=== PATIENT | female | born 1975 | race Caucasian/White ===

== ENCOUNTER → 2017-04-05 | Outpatient (CLI) | payer BC ==
--- NOTE | 2017-04-05 22:19 | DI ---
MRI LEFT ANKLE SCAN, 04/05/2017 10:44 AM: Clinical History: Left foot pain. Previous Exam: 02/01/2013. Technique: Axial, coronal, and sagittal PD and fat saturated PD. There is no soft tissue edema or abnormal muscle signal pattern. The talus and calcaneus both show ab normally increased signal intensity. In the neck of the calcaneus, there is a band of hypointensity i n this probably represents a healing stress fracture. There is edema diffusely through the neck and a long the inferolateral margin of the talus. A large joint effusion is present anteriorly and posterio rly with synovitis. There is mild thickening of the Achilles tendon proximal to the attachment to the calcaneus consistent with mild tendinosis. The medial cord of the plantar fascia is thickened consis tent with plantar fasciitis. The tibialis posterior tendon from a point proximal to the medial malleo mauricio and extending to the region of the spring ligament shows marked thickening with increased signal intensity centrally consistent with severe tendinosis. Fluid surrounds this tendon indicating tenosyn ovitis. There is tenosynovitis of the flexor digitorum longus and flexor hallucis longus tendons. Ten osynovitis is also present in the peroneus brevis and longus tendon sheaths. The extensor tendons are intact. Intermediate signal intensity is present in the cervical and interosseous talocalcaneal liga ments, the 3 components of the spring ligament, the deltoid ligament, and the anterior and posterior talofibular ligaments and the calcaneofibular ligament all consistent with chronic partial tears or s prains. Mild chronic tears or sprains are also evident in the anterior and posterior syndesmotic liga ments. The transverse tibiofibular ligament is intact. There is an apparent os trigonum without evide nce of edema. Readin. There is an apparent healing stress fracture through the neck of the calcaneus with bone edema in volving the talus. This should be correlated with either plain films of the ankle or preferably a CT scan of the ankle. 2. Large joint effusion with synovitis. There is severe tendinosis of the posterior tibial tendon wi th tenosynovitis involving the posterior tibial, flexor digitorum longus, and flexor hallucis longus tendons. Partial chronic tears involve the sprain, cervical, and interosseous talocalcaneal ligaments as well as the deltoid ligament, the anterior and posterior talofibular and syndesmotic ligaments. 3. Mild tendinosis of the Achilles tendon is noted. There is medial cord plantar fasciitis.
== END ==
LOC: MRI 10:39
PROVIDERS: ATTEND Podiatrist Foot & Ankle Surgery
DX: M79.672 Pain in left foot (principal); M84.375S Stress fracture, left foot, sequela; M25.475 Effusion, left foot; S93.692A Other sprain of left foot, initial encounter
CPT/HCPCS: 73721

== ENCOUNTER 2017-07-14 08:56 | Observation (INO) ==
[~2017-07-14 08:56] MED LIST: CefOXitin Inj 2 GM in Sodium Chloride 0.9% 100 ML IV ONE; LIDOCAINE W/ SODIUM BICARB 0.5 ML SYR ONE; LIDOCAINE W/ SODIUM BICARB 0.5 ML SYR SUBD ONE; Lactated Ringers 1,000 ML PRIMARY IV ONE; Sodium Chloride 0.9% 100 ML IV ONE
[2017-07-14 09:15] LABS: BILIRUBIN,URINE NEGATIVE (NEG); CLARITY,URINE CLEAR (CLEAR); COLOR,URINE YELLOW (Y); GLUCOSE, URINE (UA) NEGATIVE (NEG); NITRATE,URINE NEGATIVE (NEG); OCCULT BLOOD,URINE MODERATE (NEG); PH,URINE 6.5 (5.0-8.5); PROTEIN,URINE NEGATIVE (NEG); UROBILINOGEN,URINE 0.2 EU/dL (0.2)
[2017-07-14 09:17] LABS: URINE SPECIFIC GRAVITY - MAN 1.015
[2017-07-14 09:20] LABS: URINE SAMPLE TYPE CLEAN CATCH URINE
[2017-07-14 09:21] LABS: BACTERIA,URINE FEW; SQUAMOUS EPITHELIAL CELL,UR MANY
[2017-07-14 09:35] LABS: Hematocrit [HCT] 27.2 % (37.0-47.0); Hemoglobin [HGB] 8.1 g/dL (12.0-16.0)
[2017-07-14] MEDS ORDERED: SCOPOLAMINE HYDROBROMIDE 1.5 MG - 1 EACH PATCH TRANSDERM ONE (10:00)
[2017-07-14] MEDS ORDERED: ONDANSETRON 4 MG/2 ML VIAL ONE (10:01)
[2017-07-14] MEDS ORDERED: DEXAMETHASONE PF 10 MG/1 ML VIAL ONE (10:01)
[2017-07-14] MEDS ORDERED: Acetaminophen 1000mg Inj 1,000 MG/100 ML VIAL IV ONE (10:01)
[2017-07-14] MEDS: Lactated Ringers 1,000 ML PRIMARY IV SCH ×2 (10:21→18:57)
[2017-07-14] MEDS ORDERED: BUPIVACAINE 0.25% W/ EPI - 10 ML VIAL ONE (10:22)
[2017-07-14] MEDS ORDERED: LIDOCAINE HCL 2 % 10 ML JELLY URO-JECT TOPICAL ONE ×2 (10:22→11:43)
[2017-07-14] MEDS ORDERED: LIDOCAINE MPF 2% - 5 ML (20 MG/1 ML) ONE (10:35)
[2017-07-14] MEDS ORDERED: fentaNYL Inj 250 MCG/5 ML VIAL ONE (10:35)
[2017-07-14] MEDS ORDERED: PROPOFOL 10 MG/1 ML (200 MG/20 ML) VIAL IV ONE (10:35)
[2017-07-14] MEDS ORDERED: MIDAZOLAM 5 MG/1 ML ONE (10:35)
[2017-07-14] MEDS ORDERED: SUFENTANIL 50 MCG/1 ML ONE (10:36)
[2017-07-14] MEDS ORDERED: KETAMINE 100 MG/1 ML - 5 ML ONE (10:36)
[2017-07-14] MEDS ORDERED: Sodium Chloride 0.9% vial 10 ML ONE (10:37)
[2017-07-14] MEDS ORDERED: ROCURONIUM 10 MG/1 ML - 5 ML VIAL IVP ONE (10:56)
[2017-07-14] MEDS ORDERED: Opium-Belladonna 60-16.2mg 1 EACH SUPP.RECT RECTAL ONE ×3 (11:43→11:46)
[2017-07-14] MEDS ORDERED: Prochlorperazine Edisylate Inj 10mg/2ml vial IVP PRN (11:45)
[2017-07-14] MEDS ORDERED: NORMAL SALINE 10 ML SYRINGE FLUSH IVP PRN ×4 (11:45→15:29)
[2017-07-14] MEDS ORDERED: HYDROmorphone 2 MG/1 ML IVP PRN (11:45)
--- NOTE | 2017-07-14 11:45 | CRNA.PROGR ---
Anesthesia Time - - Start date: 07/14/17 End date: 07/14/17 - Procedure/Recovery Time Anesthesia : Time In: 10:50 Anesthesia : Time Out: 14:02 Anesthesia : Total Time: 192 - Total Anesthesia Time Total Anesthesia Time (minutes): 192 - Other Weight: 145.15 kg Height: 5 ft 4 in Body Mass Index (BMI): 54.9 Physical Status: P3 (morbid obesity) Anesthesia Type: General Anesthesia : ET
[2017-07-14] MEDS ORDERED: GLYCOPYRROLATE 0.2 MG/1 ML VIAL ONE (11:58)
[2017-07-14] MEDS ORDERED: Lactated Ringers 1,000 ML PRIMARY IV ONE (13:12)
[2017-07-14] MEDS ORDERED: NEOSTIGMINE 1 MG/1 ML - 10 ML ONE (13:14)
[2017-07-14] MEDS ORDERED: KETOROLAC 30 MG/1 ML VIAL ONE (13:18)
[2017-07-14] MEDS ORDERED: oxyCODONE/APAP 7.5/325 Tab 1 TAB TAB PO PRN ×2 (13:20→15:29)
[2017-07-14] MEDS ORDERED: KETOROLAC 15 MG/1 ML VIAL IVP PRN ×2 (13:20→15:29)
[2017-07-14] MEDS ORDERED: IBUPROFEN 800 MG TABLET PO PRN ×2 (13:20→15:29)
[2017-07-14] MEDS ORDERED: Ondansetron ODT Tab 8 MG TAB PO PRN ×2 (13:20→15:29)
[2017-07-14] MEDS ORDERED: LIDOCAINE HCL 2 % 10 ML JELLY URO-JECT TOPICAL PRN ×2 (13:20→15:29)
--- NOTE | 2017-07-14 13:27 | OB.OP.NOTE ---
Operative Report Surgeon: Harish Chief Business Development Officer: Maksim Avila MD Anesthesia Type: General Anesthesia Provider: Phillip Nick CRNA Surgery Date: 07/14/17 Preoperative Diagnosis: MMR/Fibroids Postoperative Diagnosis: Same Procedure: da Edwin Hysterectomy/Bilateral Salingpectomy/Cystoscopy Estimated Blood Loss (mL): 200 Fluids: 3700 ml Complications: None Findings at Surgery: Enlarged, multiply fibroid uterus. Tubes s/p BTL. Normal ovaries. No visible evidence of bowel, bladder or ureter injury. At cysto, the bladder was intact, and the ureters both ejected urine. Indications for the Procedure: MMR/Fibroids Description of Procedure: See dictated operative report. Plan: Routine post op care and discharge to home.
--- NOTE | 2017-07-14 14:00 | CRNA.PROGR ---
Anesthesia Recovery Phase I - Post Anesthesia Evaluation Patient's Condition on Arrival in Phase I: Stable Pain Level: 1
[2017-07-14] MEDS ORDERED: Sodium Chloride 0.9% 100 ML IV ONE (14:16)
[2017-07-14] MEDS ORDERED: CefOXitin Inj 1 GM in Sodium Chloride 0.9% 100 ML IV ONE (14:20)
[2017-07-14] MEDS: DOCUSATE 100 MG CAPSULE PO SCH (20:46)
[2017-07-14] MEDS: ENOXAPARIN SODIUM 40 MG/0.4 ML SYRINGE SUBCUT SCH (20:47)
[2017-07-14] MEDS ORDERED: DOCUSATE 100 MG CAPSULE PO SCH (21:00)
[2017-07-15 06:42] LABS: Hemoglobin [HGB] 7.1 g/dL (12.0-16.0); RED BLOOD COUNT 3.47 10^6/uL (4.20-5.40)
[2017-07-15 06:43] LABS: Hematocrit [HCT] 23.7 % (37.0-47.0); MEAN CORPUSCULAR HEMOGLOBIN 20.4 PG (27-31); MEAN CORPUSCULAR HGB CONC 29.9 g/dL (33-37); MEAN CORPUSCULAR VOLUME 68 FL (81-99); MEAN PLATELET VOLUME 8.3 FL (7.4-12.2); WBC MORPHOLOGY COMMENT NORMAL MORPHOLOGY (NORM)
[2017-07-15 06:44] LABS: BAND NEUTROPHILS % 2 % (0-10); BASOPHILS % (MANUAL) 1 % (0-1); EOSINOPHILS % (MANUAL) 0 % (0-8); MONOCYTES % (MANUAL) 4 % (0-12); NEUTROPHILS % (MANUAL) 90 % (50-80); PLATELET MORPHOLOGY COMMENT SEE COMMENTS (NORM); RBC MORPHOLOGY COMMENT NORMAL MORPHOLOGY (NORM)
[2017-07-15] MEDS: Lactated Ringers 1,000 ML PRIMARY IV SCH (06:44)
[2017-07-15] MEDS: ENOXAPARIN SODIUM 40 MG/0.4 ML SYRINGE SUBCUT SCH (08:31)
[2017-07-15] MEDS: DOCUSATE 100 MG CAPSULE PO SCH (08:31)
[2017-07-15 10:04] VITALS: BP 128/59; RESP 18; TEMP 98.1; O2SAT 95
--- NOTE | 2017-07-15 10:19 | DCSUMMARY ---
Hospitalization Summary Admit Date: 07/14/17 Discharge Date: 07/15/17 Primary Diagnosis:: MMR/Fibroids Secondary Diagnosis:: Anemia Hospital Course: The patient had a robotic hysterectomy without complication for an enlarged, fibroid uterus. She was observed overnight as her preop H/H were low. She remained stable with normal vital signs and her H/H the following morning was acceptable for discharge. She was discharged to home in good condition. F/u 2 weeks. Exam - Vitals Vital Signs: Vital Signs Temperature 98.1 F Temperature Source Oral Pulse Rate [Pulse Oximeter] 65 Pulse Rate 53 Respiratory Rate 18 Blood Pressure [Right Arm] 128/59 Blood Pressure [Left Radial 120/71 Artery] Blood Pressure 113/65 Pulse Ox 95 Oxygen Flow Rate 1 Oxygen Delivery Method Room Air Height 5 ft 4 in Weight 331 lb
--- NOTE | 2017-07-15 10:21 | PDOC(PROG) ---
Subjective Post Op Day: 1 Pain Management: PO Garsia Catheter: No Flatus: Yes Diet: Regular Ambulating: Yes Concerns / Additional Information: Pt. observed overnight due to preop anemia and significant intraoperative blood loss. She remained stable overnight and her H/H this AM are 03/04. She is able to ambulate without problems and her vital signs are normal. She requests discharge to home. Assesstment / Plan Assessment / Plan: POD 1 doing well. Discharge to home.
== END 2017-07-15 10:45 | disposition home or self-care (01) ==
LOC: MED/SURG 08:56 → OR 08:56
PROVIDERS: ADMIT Obstetrics & Gynecology; ATTEND Obstetrics & Gynecology